=== PATIENT | female | born 1995 | race Hispanic/Latino ===

== ENCOUNTER 2018-04-27 12:29 | Emergency (ER) | payer MEDICAID, OTHER ==
[2018-04-27 12:41] VITALS: BMI 30.4
[2018-04-27 12:42] VITALS: TEMP 98.2
--- NOTE | 2018-04-27 13:33 | ED PDOC ---
HPI: Abdomen Time Seen by Provider: 04/27/18 12:54 Chief Complaint (Nursing): Abdominal Pain Chief Complaint (Provider): Abdominal Pain History Per: Patient History/Exam Limitations: no limitations Onset/Duration Of Symptoms: Days (yesterday), Other (cough for 3 weeks) Current Symptoms Are (Timing): Still Present Additional Complaint(s): Patient is a 23 y/o female with G2:P0 and no significant PMHx who presents to the ED for evaluation of lower abdominal pain, tactile fever, and body aches, onset yesterday. Patient additionally admits to nausea and discharge from her right ear for the last couple of days. Patient also complains of a cough productive of white, yellow sputum for the past three weeks that worsens at night. Patient denies a sore throat, ear pain, vomiting, diarrhea, shortness of breath, dysuria, urinary frequency, and vaginal discharge or bleeding. Furthermore, patient states she has not had her menstrual period since 01/18/2018. PCP: None Provided : 2 Para: 0 Past Medical History Reviewed: Historical Data, Nursing Documentation, Vital Signs Vital Signs: Last Vital Signs Temp 98.2 F 04/27/18 12:41 Pulse 78 04/27/18 12:41 Resp 15 04/27/18 12:41 BP 107/65 04/27/18 12:41 Pulse Ox 98 04/27/18 12:41 - Medical History PMH: No Chronic Diseases - Surgical History Surgical History: No Surg Hx - Family History Family History: States: No Known Family Hx - Home Medications Home Medications: Ambulatory Orders Medication Instructions Recorded Ca/Cholecalciferol/Fe/Folic 1 1 tab PO DAILY 02/06/14 [Basic's Vitamins] Nitrofurantoin Macrocrystals 100 mg PO BID 5 Days cap 04/27/18 [Macrobid] - Allergies Allergies/Adverse Reactions: Allergies Allergy/AdvReac Type Severity Reaction Status Date / Time No Known Allergies Allergy Verified 10/11/15 06:00 Review of Systems ROS Statement: Except As Marked, All Systems Reviewed And Found Negative Constitutional: Positive for: Fever (Tactile), Other (body aches) ENT: Positive for: Ear Discharge (right). Negative for: Ear Pain, Throat Pain (soreness) Respiratory: Positive for: Cough, Sputum (white and yellow). Negative for: Shortness of Breath Gastrointestinal: Positive for: Nausea, Abdominal Pain (lower). Negative for: Vomiting, Diarrhea Genitourinary Female: Negative for: Dysuria, Frequency, Vaginal Discharge, Vaginal Bleeding Physical Exam - Reviewed Nursing Documentation Reviewed: Yes Vital Signs Reviewed: Yes - Physical Exam Appears: Positive for: No Acute Distress Head Exam: Positive for: ATRAUMATIC, NORMAL INSPECTION, NORMOCEPHALIC ENT: Positive for: Normal ENT Inspection, TM Is/Are (normal on left; purulent discharge in right ear canal with mild erythema) Cardiovascular/Chest: Positive for: Regular Rate, Rhythm. Negative for: Murmur Respiratory: Positive for: Normal Breath Sounds. Negative for: Respiratory Distress Gastrointestinal/Abdominal: Positive for: Tenderness (to palpation of right lower and left lower quadrant). Negative for: Guarding, Rebound Neurological/Psych: Positive for: Alert, Oriented - ECG O2 Sat by Pulse Oximetry: 98 (RA) Pulse Ox Interpretation: Normal Medical Decision Making Medical Decision Making: Time: 1314 Impression: and Cough Plan: - Urine - Urine Dip - Urine Culture - Beta HCG - Transvaginal US - Rapid Flu Time: 1330 Patient's urine was positive. Patient advised, given , to limit cough medication and to use humidifier. Negative for Flu A/B Beta HC.00 mIU/mL Time: 1415 Urine dip has small leukocyte esterase. Urine was cloudy. Negative for nitrate and blood. Time: 1445 FINDINGS: Uterus measures 11.2 x 10.8 x 7.5 centimeters. There is intra gestational sac with a mean sac dimension corresponding to 9 weeks and 5 days gestational age. heart motion is observed. There is a crown rump length pole letty esponding to 10 weeks 1 day gestational age. The ovaries are not identified. IMPRESSION: SLIUG of roughly 10 weeks. Scribe Attestation: Documented by Phi Figueroa, acting as a scribe for TEE Harrison Provider Scribe Attestation: All medical record entries made by the Scribe were at my direction and personally dictated by me. I have reviewed the chart and agree that the record accurately reflects my personal performance of the history, physical exam, medical decision making, and the department course for this patient. I have also personally directed, reviewed, and agree with the discharge instructions and disposition. Disposition - Clinical Impression Clinical Impression: URI (upper respiratory infection), Abdominal pain in , UTI in - Patient ED Disposition Is Patient to be Admitted: No Counseled Patient/Family Regarding: Studies Performed, Diagnosis, Need For Followup, Rx Given - Disposition [facility] Disposition: Routine/Home Disposition Time: 15:20 Condition: STABLE Additional Instructions: Follow up with senior systems engineer as soon as possible to establish care. You can use humidifier, menthol rub, honey and tea for cough. Tylenol for any discomfort. Return to ER if your cough worsens or you start having shortness of breath. Take antibiotic as prescribed for likely urinary tract infection. Prescriptions: Nitrofurantoin Macrocrystals [Macrobid] 100 mg PO BID 5 Days cap Instructions: Urinary Tract Infection, Adult (DC), Cough, Runny Nose, and the Common Cold (DC), Stomach Pain in Early Forms: [facility] (Maltese) Print Language: KAZAKH - POA Present On Arrival: None
--- NOTE | 2018-04-27 14:49 | US ---
Date of service: 04/27/2018 PROCEDURE: HISTORY: + , abd pain COMPARISON: TECHNIQUE: FINDINGS: Uterus measures 11.2 x 10.8 x 7.5 centimeters. There is intra gestational sac with a mean sac dimension corresponding to 9 weeks and 5 days gestational age. heart motion is observed. There is a crown rump length pole corresponding to 10 weeks 1 day gestational age. The ovaries are not identified. IMPRESSION: SLIUG of roughly 10 weeks.
[2018-04-27 15:29] VITALS: BP 117/65; PULSE 72; RESP 18; O2SAT 97
== END 2018-04-27 15:27 | disposition home or self-care (01) ==
LOC: H.ER 12:29
DX: O23.40 Unspecified infection of urinary tract in pregnancy, unspecified trimester (principal); J06.9 Acute upper respiratory infection, unspecified

== ENCOUNTER 2018-05-03 13:17 | Emergency (ER) | payer MEDICAID, OTHER ==
[2018-05-03 13:17] VITALS: BMI 30.4
[2018-05-03] MEDS ORDERED: Albuterol-Ipratrop 3 mg / 0.5 (3 ml) UD ONE (14:51)
[2018-05-03] MEDS: Albuterol-Ipratrop 3 mg / 0.5 (3 ml) UD INH STA ×2 (14:58→14:59)
--- NOTE | 2018-05-03 16:41 | ED PDOC ---
HPI: Influenza Time Seen by Provider: 05/03/18 14:10 Chief Complaint: Cough, Cold, Congestion Chief Complaint (Provider): Cough History Per: Patient Exam Limitations: no limitations Onset/Duration Of Symptoms: Days (3x) Symptoms include: cough, other (clear phlegm). denies: fever, vomiting ((-) nausea) Additional complaint(s):: 23 year old female with no pertinent past medical history presents to the ED for an evaluation of a cough ongoing for 3x days. Patient reports having associated clear phlegm, and denies having fevers, nausea, or vomiting. Patient states that earlier today she was at an clinic, where they refused her procedure because she was wheezing. Patient was seen in the ED 5x days ago for the same complaint and was discharged home. Patient is back today with wheezing and a cough. PMD: None provided. Past Medical History Reviewed: Historical Data, Nursing Documentation, Vital Signs Vital Signs: Last Vital Signs Temp 98.1 F 05/03/18 14:10 Pulse 79 05/03/18 14:10 Resp 18 05/03/18 14:10 BP 106/75 05/03/18 14:10 Pulse Ox 97 05/03/18 14:10 SEGUN Report Viewed: Yes - Medical History PMH: No Chronic Diseases - Family History Family History: States: No Known Family Hx - Social History Current smoker - smoking cessation education provided: No Alcohol: None Drugs: Denies - Home Medications Home Medications: Ambulatory Orders Medication Instructions Recorded Ca/Cholecalciferol/Fe/Folic 1 1 tab PO DAILY 02/06/14 [Basic's Vitamins] Nitrofurantoin Macrocrystals 100 mg PO BID 5 Days cap 04/27/18 [Macrobid] Albuterol HFA [Ventolin HFA 90 2 puff IH [id number] PRN #1 unit 05/03/18 mcg/actuation (8 g)] guaiFENesin/Dextromethorphan 1 tab PO Q12H PRN #14 tab 05/03/18 [guaiFENesin/DM 600-30 mg] predniSONE [predniSONE Tab] 60 mg PO DAILY #12 tab 05/03/18 - Allergies Allergies/Adverse Reactions: Allergies Allergy/AdvReac Type Severity Reaction Status Date / Time No Known Allergies Allergy Verified 05/03/18 14:10 Review of Systems ROS Statement: Except As Marked, All Systems Reviewed And Found Negative Constitutional: Negative for: Fever Respiratory: Positive for: Cough, Sputum (bringing up clear phlegm), Wheezing Gastrointestinal: Negative for: Nausea, Vomiting Physical Exam - Reviewed Nursing Documentation Reviewed: Yes Vital Signs Reviewed: Yes - Physical Exam Appears: Positive for: Well, Non-toxic, No Acute Distress Head Exam: Positive for: ATRAUMATIC, NORMOCEPHALIC Skin: Positive for: Normal Color, Warm, Dry Eye Exam: Positive for: Normal appearance ENT: Positive for: Normal ENT Inspection Cardiovascular/Chest: Positive for: Regular Rate, Rhythm Respiratory: Positive for: Wheezing (bilaterally), Other (cough) Neurological/Psych: Positive for: Awake, Alert, Oriented (3x) Medical Decision Making Medical Decision Makin:10 Initial impression: 23 year old female with a cough and wheezing Initial plan for course treatment: * upreg * duoneb 3 ml inh x3 * peak flow pre post treatment * reevaluation 14:20 Repeat patient's vitals. Ordered prednisone 60 mg PO. Albuterol 3 ml INH ordered. 17:40 Upon provider reevaluation patient is feeling better, is medically stable, and requires no further treatment in the ED at this time Pulse ox is 98, heart rate is 95, peak flow is 300. Patient will be discharged home with Rx for prednisone, Ventolin inhaler, tessalon perles. Counseling was provided and all questions were answered regarding diagnosis and need for follow up with PMD as needed. There is agreement to discharge plan. Return if symptoms persist or worsen, or if patient develops fever, nausea, or vomiting. ScribeAttestation: Documented byStephie Hutchins, acting as a scribe for Raquel Eduardo EYELET MAKER. Provider ScribeAttestation: All medical record entries made by the Scribe were at my direction and pers onally dictated by me. I have reviewed the chart and agree that the record accurately reflects my personal performance of the history, physical exam, medical decision making, and the department course for this patient. I have also personally directed, reviewed, and agree with the discharge instructions and disposition. - ECG O2 Sat by Pulse Oximetry: 97 (RA) Pulse Ox Interpretation: Normal Disposition - Clinical Impression Clinical Impression: Bronchitis - Patient ED Disposition Is Patient to be Admitted: No Counseled Patient/Family Regarding: Diagnosis, Need For Followup, Rx Given - Disposition Referrals: [facility] [Outside] Disposition: Routine/Home Disposition Time: 17:40 Condition: IMPROVED Additional Instructions: Follow Up with PMD in 2-3 days Prescriptions: Albuterol HFA [Ventolin HFA 90 mcg/actuation (8 g)] 2 puff IH [id number] PRN #1 unit PRN Reason: Cough guaiFENesin/Dextromethorphan [guaiFENesin/DM 600-30 mg] 1 tab PO Q12H PRN #14 tab PRN Reason: Cough predniSONE [predniSONE Tab] 60 mg PO DAILY #12 tab Instructions: Acute Bronchitis, Adult (DC), Acute Bronchitis Forms: [facility] (Romansh) Print Language: ANDORRAN
[2018-05-03] MEDS ORDERED: Albuterol 0.083% Inhal Sol (2.5 mg/3 mL) UD ONE (16:42)
[2018-05-03] MEDS ORDERED: Albuterol 0.083% Inhal Sol (2.5 mg/3 mL) UD INH STA (17:10)
[2018-05-03 17:42] VITALS: BP 109/58; PULSE 95; RESP 20
[2018-05-03 17:44] VITALS: O2SAT 97
[2018-05-03 17:52] VITALS: TEMP 97.9
== END 2018-05-03 18:12 | disposition home or self-care (01) ==
LOC: H.ER 13:17
DX: J40 Bronchitis, not specified as acute or chronic (principal)

== ENCOUNTER 2018-07-02 10:09 | Emergency (ER) | payer MEDICAID ==
[2018-07-02 10:22] VITALS: BMI 32.3
--- NOTE | 2018-07-02 10:52 | ED PDOC ---
HPI: Female Pain Time Seen by Provider: 07/02/18 10:31 Chief Complaint (Nursing): Female Genitourinary Chief Complaint (Provider): Vaginal Bleeding History Per: Patient History/Exam Limitations: no limitations Onset/Duration Of Symptoms: Days Current Symptoms Are (Timing): Still Present Severity: Moderate Pain Scale Rating Of: 5 Quality Of Discomfort: Cramping Associated Symptoms: denies: Fever, Chills, Nausea, Vomiting, Diarrhea Alleviating Factors: None Additional History Per: Patient Additional Complaint(s): 23 year old female with no pertinent medical hx presents to the ED c/o pelvic cramping for one week and vaginal bleeding. Patient reports she had an elective in April. She states in May taking home test with a positive result. She reports one week ago having vaginal bleeding with regular menstrual flow with associated pelvic cramping. Patient denies back pain, fever, nausea, vomiting. Abnormal Vaginal Bleeding: Yes Last Menstral Period: last week : 4 Para: 2 Miscarriage: 1 Past Medical History Reviewed: Historical Data, Nursing Documentation, Vital Signs Vital Signs: Last Vital Signs Temp 98.5 F 07/02/18 10:21 Pulse 73 07/02/18 10:21 Resp 15 07/02/18 10:21 BP 116/61 07/02/18 10:21 Pulse Ox 99 07/02/18 10:21 Primary Care Provider: FAMILY PROVIDER,NO - Medical History PMH: No Chronic Diseases - Surgical History Surgical History: No Surg Hx, Tonsillectomy - Family History Family History: States: Unknown Family Hx - Living Arrangements Living Arrangements: With Family - Social History Alcohol: None Drugs: Denies - Home Medications Home Medications: Ambulatory Orders Medication Instructions Recorded Ca/Cholecalciferol/Fe/Folic 1 1 tab PO DAILY 02/06/14 [Basic's Vitamins] Nitrofurantoin Macrocrystals 100 mg PO BID 5 Days cap 04/27/18 [Macrobid] Albuterol HFA [Ventolin HFA 90 2 puff IH [id number] PRN #1 unit 05/03/18 mcg/actuation (8 g)] guaiFENesin/Dextromethorphan 1 tab PO Q12H PRN #14 tab 05/03/18 [guaiFENesin/DM 600-30 mg] predniSONE [predniSONE Tab] 60 mg PO DAILY #12 tab 05/03/18 Ibuprofen [Motrin Tab] 600 mg PO Q6H PRN #60 tab 07/02/18 - Allergies Allergies/Adverse Reactions: Allergies Allergy/AdvReac Type Severity Reaction Status Date / Time No Known Allergies Allergy Verified 07/02/18 10:31 Review of Systems ROS Statement: Except As Marked, All Systems Reviewed And Found Negative Constitutional: Negative for: Fever, Chills, Sweats, Weakness, Malaise Eyes: Negative for: Pain, Vision Change ENT: Negative for: Throat Pain Cardiovascular: Negative for: Chest Pain, Palpitations, Light Headedness Respiratory: Negative for: Shortness of Breath, SOB with Exertion, Wheezing Gastrointestinal: Negative for: Nausea, Vomiting, Abdominal Pain Genitourinary Female: Positive for: Vaginal Bleeding, Pelvic Pain. Negative for: Dysuria Musculoskeletal: Negative for: Back Pain Skin: Negative for: Rash Neurological: Negative for: Weakness Physical Exam - Reviewed Nursing Documentation Reviewed: Yes Vital Signs Reviewed: Yes - Physical Exam Appears: Positive for: Well, Non-toxic, No Acute Distress Head Exam: Positive for: ATRAUMATIC, NORMAL INSPECTION, NORMOCEPHALIC Skin: Positive for: Normal Color, Warm, DRY Eye Exam: Positive for: Normal appearance, EOMI, PERRL ENT: Positive for: Normal ENT Inspection Neck: Positive for: Normal, Painless ROM, Supple Cardiovascular/Chest: Positive for: Regular Rate, Rhythm, Chest Non Tender Respiratory: Positive for: CNT, Normal Breath Sounds Pulses-Radial (L): 2+ Pulses-Radial (R): 2+ Gastrointestinal/Abdominal: Positive for: Normal Exam, Bowel Sounds, Soft Back: Positive for: Normal Inspection. Negative for: L CVA Tenderness, R CVA Tenderness Extremity: Positive for: Normal ROM Neurological/Psych: Positive for: Awake, Alert, Normal Tone, Oriented - Laboratory Results Result Diagrams: 07/02/18 11:07 07/02/18 11:07 Urine POC: Negative - ECG O2 Sat by Pulse Oximetry: 99 Medical Decision Making Medical Decision Making: --CBC --CMP --BETA HCG --UA --UPREG --TYPE & SCREEN --ABO & RH TYPE 13:00 Labs reviewed by me, unremarkable. beta hcg 4. urine preg is negative. US thick ened endometrium. Impression: pelvic pain, thickened endometrium. Clinical findings discussed with patient. [facility] Patient instructed to take ibuprofen for pain. Patient states understanding and agrees with plan. Accession No. : [id number] Patient Name / ID : SARAH BRANDT / [id number] Exam Date : 07/02/2018 11:34:32 ( Approved ) Study Comment : Sex / Age : F / 23Y Creator : Sandra Jurado MD Dictator : Sandra Jurado MD Assistant Clinical Nurse Manager : Dance Critic : Sandra Jurado MD Approver2 : Report Date : 07/02/2018 12:43:43 My Comment : Date of service: 07/02/2018 HISTORY: Pelvic pain COMPARISON: None available. TECHNIQUE: Transvaginal pelvic ultrasound was performed. FINDINGS: UTERUS: Measures 9.2 x 7.5 x 5.4 cm. Anteverted, normal in size and appearance. No fibroid or other mass lesion seen. ENDOMETRIUM: Measures 17 mm in diameter. The central endometrial echo complex is thick and heterogeneous. No evidence of increased central vascularity. CERVIX: No cervical abnormality identified. RIGHT OVARY: Measures 3.1 x 2.8 x 1.9 cm. No solid mass. Normal flow. LEFT OVARY: Measures 2.2 x 2.0 x 1.9 cm. No solid mass. Normal flow. FREE FLUID: No significant free fluid noted. OTHER FINDINGS: None. IMPRESSION: Thick heterogeneous central endometrial echo complex without evidence for retained products of conception. No evidence for adnexal mass or ovarian cyst. Disposition - Clinical Impression Clinical Impression: Thickened endometrium, Pelvic cramping - Patient ED Disposition Is Patient to be Admitted: No Counseled Patient/Family Regarding: Diagnosis, Need For Followup - Disposition [facility] [[facility]] Disposition Time: 13:00 Condition: GOOD Prescriptions: Ibuprofen [Motrin Tab] 600 mg PO Q6H PRN #60 tab PRN Reason: Pain, Moderate (4-7) Instructions: Acute Pelvic Pain (DC) Forms: [employer] (Danish) Print Language: [place] - POA Present On Arrival: None
[2018-07-02 11:26] LABS: BASO % 0.8 % (0.0-2.0); EOS # 0.1 K/uL (0.0-0.7); EOS % 2.2 % (0.0-4.0); HEMOGLOBIN 12.8 g/dL (12.0-16.0); LYMPH # 1.9 K/uL (1.0-4.3); LYMPH % 32.9 % (20.0-40.0); MEAN CELL VOLUME 77.1 fl (81.0-99.0); MEAN CORPUSCULAR HGB CONC 32.4 g/dL (33.0-37.0); MEAN PLATELET VOLUME 8.3 fl (7.2-11.7); MONO # 0.4 K/uL (0.0-0.8); MONO % 7.6 % (0.0-10.0); NEUT # 3.2 K/uL (1.8-7.0); NEUT % 56.5 % (50.0-75.0); NRBC % 0.1 % (0.0-0.0); RBC 5.12 Mil/uL (3.80-5.20); RED CELL DISTRIBUTION WIDTH 16.2 % (11.5-14.5); WHITE BLOOD COUNT 5.7 K/uL (4.8-10.8)
[2018-07-02 11:34] LABS: ALB/GLOB RATIO 1.3 (1.0-2.1); ALBUMIN 4.5 g/dL (3.5-5.0); ALT/SGPT 27 U/L (9-52); AST/SGOT 26 U/L (14-36); BLOOD UREA NITROGEN 11 mg/dl (7-17); GFR NON-AFRICAN AMERICAN > 60
[2018-07-02 12:26] LABS: SQUAMOUS EPITHIAL 1 /hpf (0-5); URINE BACTERIA RARE (<OCC); URINE BILIRUBIN NEGATIVE (NEGATIVE); URINE BLOOD NEGATIVE (NEGATIVE); URINE CLARITY SLIGHTY-CLOUDY (Clear); URINE COLOR YELLOW (YELLOW); URINE GLUCOSE (UA) NEG (NEGATIVE); URINE LEUKOCYTE ESTERASE NEG Leu/uL (Negative); URINE PROTEIN NEGATIVE (NEGATIVE); URINE UROBILINOGEN 0.2-1.0 mg/dL (0.2-1.0)
--- NOTE | 2018-07-02 12:47 | US ---
Date of service: 07/02/2018 HISTORY: Pelvic pain COMPARISON: None available. TECHNIQUE: Transvaginal pelvic ultrasound was performed. FINDINGS: UTERUS: Measures 9.2 x 7.5 x 5.4 cm. Anteverted, normal in size and appearance. No fibroid or other mass lesion seen. ENDOMETRIUM: Measures 17 mm in diameter. The central endometrial echo complex is thick and heterogeneous. No evidence of increased central vascularity. CERVIX: No cervical abnormality identified. RIGHT OVARY: Measures 3.1 x 2.8 x 1.9 cm. No solid mass. Normal flow. LEFT OVARY: Measures 2.2 x 2.0 x 1.9 cm. No solid mass. Normal flow. FREE FLUID: No significant free fluid noted. OTHER FINDINGS: None. IMPRESSION: Thick heterogeneous central endometrial echo complex without evidence for retained products of conception. No evidence for adnexal mass or ovarian cyst.
[2018-07-02 13:56] VITALS: BP 137/77; PULSE 84; RESP 18; TEMP 97.9
[2018-07-02 20:47] VITALS: O2SAT 99
== END 2018-07-02 13:36 | disposition home or self-care (01) ==
LOC: H.ER 10:09
DX: N85.00 Endometrial hyperplasia, unspecified (principal); R10.2 Pelvic and perineal pain